=== PATIENT | male | born 1980 | race Caucasian/White ===

== ENCOUNTER 2018-02-26 11:18 | Emergency (ER) | payer SELFPAY ==
[~2018-02-26] VITALS: Ht 172.7 cm; Wt 91.0 kg
[2018-02-26] MEDS ORDERED: ACETAMINOPHEN 325MG TABLET PO ONE (12:15)
[2018-02-26 13:27] VITALS: BP 149/63
== END 2018-02-26 13:29 | disposition home or self-care (01) ==
LOC: ER 12:29
DX: S00.83XA Contusion of other part of head, initial encounter (principal); Y09 Assault by unspecified means
CPT/HCPCS: 70486; 99284